=== PATIENT | female | born 1935 | race Caucasian/White ===

== ENCOUNTER 2017-04-18 19:09 | Inpatient (IN) ==
[2017-04-18] MEDS ORDERED: ACETAMINOPHEN 500 MG TABLET PO STA (19:44)
[2017-04-18] MEDS ORDERED: CLINDAMYCIN INJ 600 MG in PREMIX 1 EACH IV STA (19:44)
[2017-04-18] MEDS ORDERED: SODIUM CHLORIDE 0.9% 1,000 ML IV STA (19:44)
[2017-04-18] MEDS ORDERED: VANCOMYCIN INJ 1,000 MG in SODIUM CHLORIDE 0.9% 250 ML IV SCH (20:00)
--- NOTE | 2017-04-18 20:01 | Emergency Department Note ---
ILinda Emily, am scribing for, and in the presence of, Ahsan Alcantara MD 19: 57. IQuinton Charles R, MD, personally performed the services described in this documentation, ascribed by Elissa Mckeon in my presence, and it is both accurate and complete . Arrival - Arrival Chief Complaint: Fever Stated Complaint: altered mental status ED Nursing Triage Note: Pt was [facility] when [facility] staff noticed a change of mental status. Pt at triage unable to tell date and time. Pt is oriented to self. Pt has cellulitis to bilateral lower extremities. She is supposed to be taking vancomycin at [facility] for cellulitis, but pt has refused it. Denies CP, no SOB. Mode of Arrival: Stretcher Limitations: No Limitations Source: Patient Time Seen by Provider: 04/18/17 19:37 - History of Present Illness HPI Narrative: Pt is a 81 y/o female who came to ED from [facility] for further evaluation of cellulitis in BLE that have worsened. Pt was at [facility] when [facility] staff noticed pt's AMS. Pt is not oriented to date and time, but only to self. She refused vancomycin at [facility] for her cellulitis, but denies chest pain and SOB. Pt has fever of 100.4 in ED. She notes her legs are painful to the touch. She reports it has been hard to think and get her thoughts out, but not sure why she is in the ED. Onset (ago): hour(s) Consistency: constant Severity: moderate Severity scale (1-10): 5 Quality: other Allergies/Adverse Reactions: Allergies Allergy/AdvReac Type Severity Reaction Status Date / Time adhesive Allergy ANAPHYLAXIS Verified 04/18/17 19:21 aspirin Allergy ANAPHYLAXIS Verified 04/18/17 19:21 bacitracin Allergy ANAPHYLAXIS Verified 04/18/17 19:21 [From Neosporin ([id number])] Cephalosporins Allergy ANAPHYLAXIS Verified 04/18/17 19:21 codeine Allergy ANAPHYLAXIS Verified 04/18/17 19:21 iodine Allergy ANAPHYLAXIS Verified 04/18/17 19:21 Neomycin Allergy ANAPHYLAXIS Verified 04/18/17 19:21 [From Neosporin ([id number])] Penicillins Allergy ANAPHYLAXIS Verified 04/18/17 19:21 polymyxin B Allergy ANAPHYLAXIS Verified 04/18/17 19:21 [From Neosporin ([id number])] Sulfa (Sulfonamide Allergy ANAPHYLAXIS Verified 04/18/17 19:21 Antibiotics) Home Medications: Home Medications Medication Instructions Recorded Confirmed Type Atorvastatin [Lipitor] 20 mg PO DAILY 02/03/17 02/03/17 History Cetirizine Tab [ZyrTEC Tab] 10 mg PO DAILY 02/03/17 02/03/17 History Cilostazol 50 mg PO BID 02/03/17 02/03/17 History Ferrous Sulfate [Ferrous Sulfate 325 mg PO DAILY 02/03/17 02/03/17 History Cap] Gabapentin Cap/Tab [Neurontin 300 mg PO Q6H 02/03/17 02/03/17 History Cap/Tab] Multivit,Calc,Mins/Iron/Folic 1 tablet PO DAILY 02/03/17 02/03/17 History [Women's Daily Formula Caplet] Pantoprazole Tab [Protonix Tab] 40 mg PO BID 02/03/17 02/03/17 History Tramadol HCl [Ultram] 50 mg PO Q4H PRN 02/03/17 02/03/17 History Review of System - Review of System ROS unobtainable: due to mental status (pleasantly confused) Medical,Surgical,& Family Hx - Medical History Cardio: History of: PVD Endocrine: History of: Dyslipidemia Gastrointestinal: History of: Gastrointestinal Bleed, GI Problems ( angiodyplasia of stomach) Musculoskeletal: No history of: Amputation Reproductive: History of: Breast Cancer Other: History of: Miscellaneous Medical Problems (SIRS) - Surgical History Cardiac Surgeries: Patient Denies: Cardiac Catheterization Thoracic Surgeries: Patient denies;: Organ Transplant, Lobectomy Neurologic Surgeries: Patient denies: Neurologic Surgery HEENT Surgeries: Patient denies: Tonsilectomy & Adenoidectomy Abdominal Surgeries: Surgical HX of: Abdominal Surgery, Hernia Repair Reproductive Surgeries: Patient denies;: Genitourinary Surgery - Family History Family History: Reports;: Family Cancer (MOTHER-BREAST ,), Family Diabetes (AUNT ) - Social History Smoking Status: Smoker, status unknown Frequency of Alcohol Use: None Type of Drug Use: None Marital Status: Single Lives With:: [facility] Functional capacity: wheelchair bound Exam Vital Signs: Vital Signs Temperature 100.3 F H 04/18/17 19:10 Pulse Rate 115 H 04/18/17 19:10 Respiratory Rate 14 04/18/17 19:10 Blood Pressure 126/67 04/18/17 19:10 O2 Sat by Pulse Oximetry 98 04/18/17 19:10 - General General appearance: alert, in no apparent distress - Head Head exam: Present: atraumatic, normocephalic - Eye Eye exam: Present: PERRL, EOMI - ENT ENT exam: Present: mucous membranes moist. Absent: mucous membranes dry - Neck Neck exam: Present: full ROM - Chest Chest inspection: Present: symmetric chest wall rise - Respiratory Respiratory exam: Present: normal lung sounds bilaterally. Absent: respiratory distress - Cardiovascular Cardiovascular exam: Present: tachycardia, normal heart sounds - Extremities Exam Extremities exam: Present: tenderness (BLE cellulitis: LLE is more edemaous than RLE but both are erythematous and painful to the touch; from bilateral thighs to ankles is painful to touch) - Neurological Exam Neurological exam: Present: alert, CN II-XII intact. Absent: oriented X3 (x1) - Skin Skin exam: Present: warm, diaphoresis (clammy), erythema (body hue, diffusely). Absent: dry, intact Course - Consultations Consultation #1: Hospitalist will admit patient Time: 22:03 Results - Labs CBC & BMP: 04/18/17 19:35 04/18/17 19:35 Lab Results: I have reviewed the patients labs Labs: Microbiology 04/18/17 19:35 Throat Group A Streptococcus Rapid Screen - Final Negative for Grp A Strep Ag 04/18/17 19:35 Nasal Aspirate Influenza Types A,B Antigen (GRAHAM) - Final Negative for Influenza A Ag Negative for Influenza B Ag Laboratory Tests 04/18/17 04/18/17 19:35 19:35 WBC 11.4 RBC 4.16 Hgb 12.1 Hct 36.8 Plt Count 244 MPV 9.5 L Neut % (Auto) 93.5 H Lymph % (Auto) 1.3 L Neut # (Auto) 10.6 H Lymph # (Auto) 0.2 L Segmented Neutrophils 99 H Lymphocytes 1 L Platelet Estimate Adequate Poikilocytosis 1+ Ovalocytes 1+ ESR Westergren 52 H Sodium 136 Potassium 3.8 Chloride 103 Carbon Dioxide 27 BUN 25 H Creatinine 1.00 GFR Calculation 54 BUN/Creatinine Ratio 25.00 H Glucose 110 H AST 93 H ALT 32 Alkaline Phosphatase 72 C-Reactive Protein 1.17 H Albumin 3.3 L Globulin 3.7 H Albumin/Globulin Ratio 0.8 L Amylase 50 Lipase 147.0 - Diagnostic Findings Procedure: Chest x-ray: report reviewed by me (Atelectasis or scarring at the left base. Nodular densities projecting over the right lung base, which may reprresent pulmonary nodules, calcified granulomas, or dilated vascular structures. ), Ultrasound: report reviewed by me (Venous doppler: No evidence of DVT seen in either lower extremity.) Disposition Clinical Impression: Cellulitis, Sepsis, Debility, Altered mental status, Fever Case discussed with: patient Disposition: Still a Patient Condition: Stable Time of Disposition: 22:03
[2017-04-18 20:04] LABS: Basophils % 0.2 % (0.0-0.8); Eosinophils % 0.1 % (0.00-10.9); Hematocrit 36.8 VOL% (35.7-47.0); Hemoglobin 12.1 GM/DL (12.0-16.0); Immature Granulocytes % 0.5 %; Immature Granulocytes Absolute 0.06 #; Lymphocytes # 0.2 10*3/uL (1.4-4.0); Lymphocytes % 1.3 % (21.3-54.2); Mean Corpuscular HGB Conc 32.9 GM/DL (32-36); Mean Corpuscular Hemoglobin 29 PG (27-34); Mean Corpuscular Volume 88.5 FL (87-102); Mean Platelet Volume 9.5 FL (9.6-12.0); Monocytes # 0.5 10*3/uL (0.11-0.8); Monocytes % 4.4 % (1.7-12.7); Neutrophils # 10.6 10*3/uL (1.4-7.4); Neutrophils % 93.5 % (38.7-73.9); Platelet Count 244 T/CUMM (130-400); Red Blood Count 4.16 MC/CUMM (3.8-5.5); Red Cell Distribution Width 14.8 % (9.3-17.3); White Blood Count 11.4 T/CUMM (4-12)
--- NOTE | 2017-04-18 20:07 | XRay Report ---
Portable chest. Indication: Shortness of breath. Fever. Comparison: November 20, 2008. The heart is normal in size with left ventricular hypertrophy. There is atelectasis or scarring at the left lung base which was not present on the previous exam. The pulmonary vasculature is normal. There has been a right mastectomy and axillary dissection. The medial aspect of the right lung base, there are multiple small round densities measuring under a centimeter each. Degenerative changes are noted within the spinal column. Impression: Atelectasis or scarring at the left base. Nodular densities projecting over the right lung base, which may represent pulmonary nodules, calcified granulomas, or dilated vascular structures. PROCEDURE INTERPRETED AT [facility] DEPARTMENT OF RADIOLOGY Final Report Signed by: Dr. Sandra Boudreaux
[2017-04-18 20:15] LABS: Partial Thromboplastin Time 27.7 SECS (0-40)
[2017-04-18 20:23] LABS: Lymphocytes 1 % (20-55); Ovalocytes 1+; Platelet Estimate Adequate; Poikilocytosis 1+; Segmented Neutrophils 99 % (50-85); Total Cells Counted 100
[2017-04-18 20:24] LABS: Albumin 3.3 G/DL (3.4-5.0); Bilirubin,Total 0.4 MG/DL (0.2-1.0); Calcium 8.9 MG/DL (8.5-10.1); Potassium 3.8 MMOL/L (3.5-5.1)
--- NOTE | 2017-04-18 20:24 | Ultrasound Report ---
Bilateral lower extremity venous Doppler with mccarty scale, Spectral Doppler and color-flow analysis performed and interpreted. Indication: Edema Scanning over both common femoral veins, superficial femoral veins, greater saphenous veins and popliteal veins demonstrates normal compressibility, color flow, and augmentation. Impression: No evidence of DVT seen in either lower extremity. The Ultrasound images were captured and stored. PROCEDURE INTERPRETED AT [facility] DEPARTMENT OF RADIOLOGY Final Report Signed by: Dr. Sandra Boudreaux
[2017-04-18 21:07] LABS: Sedimentation Rate-Westergren 52 MM/HR (0-30)
[2017-04-18] MEDS ORDERED: VANCOMYCIN 1,000 MG VIAL ONE (21:08)
[2017-04-18] MEDS ORDERED: CLINDAMYCIN INJ 50 ML IV ONE (21:09)
[2017-04-18] MEDS ORDERED: ACETAMINOPHEN 500 MG TABLET ONE (21:09)
[2017-04-18 21:56] LABS: Apearance,Urine Slightly Hazy (Clear); Bilirubin,Urine Negative (Negative); Blood, Urine Large mg/dL (Negative); Glucose,Urine (UA) Negative (Negative); Ketones,Urine 5 mg/dL (Negative); Mucus,Urine Occasional /LPF (Occasional); Nitrite,Urine Negative (Negative); Protein,Urine 30 MG/DL; RBC,Urine 1 /HPF (0-4); Squamous Epithelial Cell,Urine Occasional /HPF (0-10); Urine Color Yellow (Yellow); Urine Specific Gravity 1.019 (1.001-1.035); Urine Urobilinogen < 2.0 EU/DL (0.2-1.0); WBC,Urine 2 /HPF (0-6)
[2017-04-18 22:19] LABS: Lactic Acid 2.5 MMOL/L (0.4-2.0)
[2017-04-18] MEDS ORDERED: ACETAMINOPHEN 325 MG TABLET PO PRN (23:31)
[2017-04-18] MEDS ORDERED: ONDANSETRON 4 MG/2 ML VIAL IV PRN (23:31)
[2017-04-18] MEDS ORDERED: traMADol 50 MG TABLET PO PRN (23:33)
--- NOTE | 2017-04-18 23:34 | Hospitalist History & Physical ---
History of Present Illness Chief complaint: fever, cellulitis History of present illness: Ms. Myers is a 81 year old female Home Medications Medication Instructions Recorded Confirmed Type Atorvastatin [Lipitor] 20 mg PO DAILY 02/03/17 02/03/17 History Cetirizine Tab [ZyrTEC Tab] 10 mg PO DAILY 02/03/17 02/03/17 History Cilostazol 50 mg PO BID 02/03/17 02/03/17 History Ferrous Sulfate [Ferrous Sulfate 325 mg PO DAILY 02/03/17 02/03/17 History Cap] Gabapentin Cap/Tab [Neurontin 300 mg PO Q6H 02/03/17 02/03/17 History Cap/Tab] Multivit,Calc,Mins/Iron/Folic 1 tablet PO DAILY 02/03/17 02/03/17 History [Women's Daily Formula Caplet] Pantoprazole Tab [Protonix Tab] 40 mg PO BID 02/03/17 02/03/17 History Tramadol HCl [Ultram] 50 mg PO Q4H PRN 02/03/17 02/03/17 History Allergies Allergy/AdvReac Type Severity Reaction Status Date / Time adhesive Allergy ANAPHYLAXIS Verified 04/18/17 19:21 aspirin Allergy ANAPHYLAXIS Verified 04/18/17 19:21 bacitracin Allergy ANAPHYLAXIS Verified 04/18/17 19:21 [From Neosporin ([id number])] Cephalosporins Allergy ANAPHYLAXIS Verified 04/18/17 19:21 codeine Allergy ANAPHYLAXIS Verified 04/18/17 19:21 iodine Allergy ANAPHYLAXIS Verified 04/18/17 19:21 Neomycin Allergy ANAPHYLAXIS Verified 04/18/17 19:21 [From Neosporin ([id number])] Penicillins Allergy ANAPHYLAXIS Verified 04/18/17 19:21 polymyxin B Allergy ANAPHYLAXIS Verified 04/18/17 19:21 [From Neosporin ([id number])] Sulfa (Sulfonamide Allergy ANAPHYLAXIS Verified 04/18/17 19:21 Antibiotics) Medical,Surgical,& Family Hx - Medical History Cardio: History of: PVD Endocrine: History of: Dyslipidemia Gastrointestinal: History of: Gastrointestinal Bleed, GI Problems ( angiodyplasia of stomach) Musculoskeletal: No history of: Amputation Reproductive: History of: Breast Cancer Other: History of: Miscellaneous Medical Problems (SIRS) - Surgical History Cardiac Surgeries: Patient Denies: Cardiac Catheterization Thoracic Surgeries: Patient denies;: Organ Transplant, Lobectomy Neurologic Surgeries: Patient denies: Neurologic Surgery HEENT Surgeries: Patient denies: Tonsilectomy & Adenoidectomy Abdominal Surgeries: Surgical HX of: Abdominal Surgery, Hernia Repair Reproductive Surgeries: Patient denies;: Genitourinary Surgery - Family History Family History: Reports;: Family Cancer (MOTHER-BREAST ,), Family Diabetes (AUNT ) - Social History Smoking Status: Smoker, status unknown Frequency of Alcohol Use: None Type of Drug Use: None Exam - Constitutional Vitals: Period Temp Pulse Resp BP Sys/Mares Pulse Ox Last 24 Hr 100.3 F-100.3 F 115-115 14-18 126-126/67-67 94-98 Results - Labs CBC & BMP: 04/18/17 19:35 04/18/17 19:35
--- NOTE | 2017-04-19 00:28 | Hospitalist History & Physical ---
Assessment and Plan - Time spent with patient Time spent with patient: Greater than 30 minutes (1) Sepsis Status: Acute Assessment and plan: Admit to hospitalist services. Consult Dr. Allen. Sepsis criteria: Temp 100.3, HR 115, Lactic acid 2.5. BP was initially stable in ED, but then went low during ED stay. However, she reports she always has low BP. Son verifies this statement. NS bolus given in ED. Blood and urine cultures obtained in ED; follow. Repeat Lactic acid ordered. Vancomyin and Clindamycin given in ED. Continue antibiotic therapy with Vancomycin 1 gram Q12 hours. Repeat CBC and CMP in am. Current Visit: Yes (2) Cellulitis Status: Acute Assessment and plan: As above for Sepsis. Current Visit: Yes (3) Altered mental status Status: Acute Assessment and plan: As above for Sepsis. Monitor. Current Visit: Yes (4) Fever Status: Acute Assessment and plan: As above for Sepsis. Tylenol 325 mg Q4 hours PRN for fever. Current Visit: Yes (5) DVT prophylaxis Status: Acute Assessment and plan: Lovenox 40 mg SQ daily. Current Visit: Yes History of Present Illness Chief complaint: Altered Mental Status, confusion History of present illness: Ms. Villafuerte is a 81 year old female with a past medical history significant for PVD, dyslipidemia, GI bleed, angiodysplasia of stomach and breast cancer who presented to the ED tonight from the care home with complaints of fever, altered mental status, and cellulitis of BLEs. The care home reports that the patient was prescribed Vancomycin for her cellulitis but she refused it. Ms. Villafuerte states this is because a doctor, whom she cannot recall the name, told her it would be bad for her legs. She reports seeing Dr. Allen for grafting on left foot and has an appointment with him tomorrow. In the ED, her work up was significant for Temp 100.3, HR 115 and Lactic acid 2.5. WBCs were normal. Venous dopplers were negative for DVT. Currently, she complaints of being more forgetful and states that her legs are painful. Hospitalist services were consulted, and the patient will be admitted for further evaluation and treatment. Home medications were reviewed and reconciled. This patient is a full code. Home Medications Medication Instructions Recorded Confirmed Type Atorvastatin [Lipitor] 20 mg PO DAILY 02/03/17 02/03/17 History Cetirizine Tab [ZyrTEC Tab] 10 mg PO DAILY 02/03/17 02/03/17 History Cilostazol 50 mg PO BID 02/03/17 02/03/17 History Ferrous Sulfate [Ferrous Sulfate 325 mg PO DAILY 02/03/17 02/03/17 History Cap] Gabapentin Cap/Tab [Neurontin 300 mg PO Q6H 02/03/17 02/03/17 History Cap/Tab] Multivit,Calc,Mins/Iron/Folic 1 tablet PO DAILY 02/03/17 02/03/17 History [Women's Daily Formula Caplet] Pantoprazole Tab [Protonix Tab] 40 mg PO BID 02/03/17 02/03/17 History Tramadol HCl [Ultram] 50 mg PO Q4H PRN 02/03/17 02/03/17 History Allergies Allergy/AdvReac Type Severity Reaction Status Date / Time adhesive Allergy ANAPHYLAXIS Verified 04/18/17 19:21 aspirin Allergy ANAPHYLAXIS Verified 04/18/17 19:21 bacitracin Allergy ANAPHYLAXIS Verified 04/18/17 19:21 [From Neosporin ([id number])] Cephalosporins Allergy ANAPHYLAXIS Verified 04/18/17 19:21 codeine Allergy ANAPHYLAXIS Verified 04/18/17 19:21 iodine Allergy ANAPHYLAXIS Verified 04/18/17 19:21 Neomycin Allergy ANAPHYLAXIS Verified 04/18/17 19:21 [From Neosporin ([id number])] Penicillins Allergy ANAPHYLAXIS Verified 04/18/17 19:21 polymyxin B Allergy ANAPHYLAXIS Verified 04/18/17 19:21 [From Neosporin ([id number])] Sulfa (Sulfonamide Allergy ANAPHYLAXIS Verified 04/18/17 19:21 Antibiotics) Medical,Surgical,& Family Hx - Medical History Cardio: History of: PVD Endocrine: History of: Dyslipidemia Gastrointestinal: History of: Gastrointestinal Bleed, GI Problems ( angiodyplasia of stomach) Reproductive: History of: Breast Cancer Other: History of: Miscellaneous Medical Problems (SIRS) - Surgical History Abdominal Surgeries: Surgical HX of: Abdominal Surgery, Hernia Repair - Family History Family History: Reports;: Family Cancer (MOTHER-BREAST ,), Family Diabetes (AUNT ) - Social History Smoking Status: Former smoker Have you smoked in the last 12 months: No Frequency of Alcohol Use: None Type of Drug Use: None Marital Status: Lives With:: [facility] Functional capacity: wheelchair bound 12 point system: reviewed and no additional remarkable complaints except as stated - Constitutional Constitutional: Absent: fever(s), lethargy, malaise, weakness - EENT Eyes: Absent: blurry vision, diplopia, loss of vision Ears: Absent: decreased hearing, ear discharge, ear pain Nose, mouth and throat: Absent: headache(s), nasal congestion, sore throat - Cardiovascular Cardiovascular: Present: edema. Absent: chest pain at rest, dyspnea, orthopnea , palpitations - Respiratory Respiratory: Absent: cough, dyspnea, wheezing - Gastrointestinal Gastrointestinal: Absent: abdominal pain, constipation, diarrhea, nausea, vomiting - Genitourinary Genitourinary: Absent: dysuria, urinary frequency - Musculoskeletal Musculoskeletal: Absent: arthralgias, joint swelling, muscle weakness, myalgias - Neurological Neurological: Present: confusion, memory loss. Absent: numbness, paresthesias, syncope - Psychiatric Psychiatric: Present: confusion. Absent: anxiety, depression - Endocrine Endocrine: Absent: fatigue, polydipsia, polyphagia, polyuria - Hematologic/Lymphatic Hematologic/Lymphatic: Absent: easy bleeding, easy bruising Exam - Constitutional Vitals: Period Temp Pulse Resp BP Sys/Mares Pulse Ox Last 24 Hr 100.3 F-100.3 F 115-115 14-18 126-126/67-67 94-98 Exam: Constitutional System: Awake and alert; unable to relate why she's at the hospital. [No] distress. [No] tremulousness. Head: Normocephalic, atraumatic. Ears, Nose and Throat System: No pain or tenderness. No epistaxis or discharge Eyes System: Pupils equal, round, and reactive. Extraocular muscles intact. Neck: Supple, without adenopathy, [No] jugular venous distention. No thyromegaly , neck mass, or prior surgery apparent. Respiratory System: Chest [clear] to auscultation. Cardiovascular System: Heart with [regular] rate and rhythm. [No] murmur. GI System: Abdomen [soft], [non]tender. [Normo]active bowel sounds present. Musculoskeletal System: BLE redness, warmth and swelling; left worse than right ; painful to touch. Neurological System: [No discernable] sensory deficit. [No] aphasia Psychiatric System: Mildly confused. Answers some questions appropriately; others she cannot recall the answer. Results - Labs CBC & BMP: 04/18/17 19:35 04/18/17 19:35 Lab Results: I have reviewed the past 24 hour labs - Diagnostic Findings Procedure: Chest x-ray: report reviewed by me Sepsis - Sepsis Classification of Sepsis: Sepsis Sepsis documentation within 6 hours of presentation: fluid change - Physical Exam Respiratory exam: clear to auscultation bilaterally Capillary Refill: Less Than 3 Seconds Peripheral pulses: Radial (L): 5+, Radial (R): 5+, Dorsalis Pedis (L) PM: 5+, Dorsalis Pedis (R) PM: 5+, Posterior Tibialis (L): 5+, Posterior Tibialis (R): 5 + Cardiovascular exam: tachycardia Skin exam: normal color
[2017-04-19 03:58] LABS: Basophils % 0.2 % (0.0-0.8); Eosinophils # 0.1 10*3/uL (0.0-0.87); Eosinophils % 0.8 % (0.00-10.9); Hematocrit 32.6 VOL% (35.7-47.0); Hemoglobin 10.6 GM/DL (12.0-16.0); Immature Granulocytes % 0.4 %; Immature Granulocytes Absolute 0.04 #; Lymphocytes # 0.3 10*3/uL (1.4-4.0); Lymphocytes % 2.6 % (21.3-54.2); Mean Corpuscular HGB Conc 32.5 GM/DL (32-36); Mean Corpuscular Hemoglobin 29 PG (27-34); Mean Corpuscular Volume 89.8 FL (87-102); Mean Platelet Volume 9.8 FL (9.6-12.0); Monocytes # 0.4 10*3/uL (0.11-0.8); Monocytes % 3.9 % (1.7-12.7); Neutrophils # 9.7 10*3/uL (1.4-7.4); Neutrophils % 92.1 % (38.7-73.9); Platelet Count 240 T/CUMM (130-400); Red Blood Count 3.63 MC/CUMM (3.8-5.5); White Blood Count 10.5 T/CUMM (4-12)
[2017-04-19 04:37] LABS: Albumin 3.1 G/DL (3.4-5.0); Bilirubin,Total 0.9 MG/DL (0.2-1.0); Calcium 8.5 MG/DL (8.5-10.1); Osmolality,Calculated 282.4 MOS/KG (273-304); Potassium 3.7 MMOL/L (3.5-5.1); Total Protein 6.4 G/DL (6.4-8.3)
[2017-04-19 05:14] LABS: Band Neutrophils 3 % (0-10); Eosinophils 2 % (0-10); Lymphocytes 3 % (20-55); Segmented Neutrophils 90 % (50-85); Total Cells Counted 100
[2017-04-19 05:15] LABS: Hypochromasia Slight; Microcytosis Slight; Ovalocytes Slight
[2017-04-19 05:16] LABS: Platelet Estimate Normal
--- NOTE | 2017-04-19 07:11 | Physician Query Form ---
CLICK EDIT DOCUMENT TO SELECT QUERY ANSWER --> OK --> SIGN Briseyda Kearns RN, CCDS Certified Clinical Applied Biology Professor W) [phone] (f) [phone] [email or web address] PROVIDERS: Make your selection(s) from the choices in EACH section by typing an "x" and enter comments in the comment section. Please use your independent medical judgment in providing your response. This request does not imply that any particular answer is desired or expected. CLINICAL INDICATORS: (Providers should not edit this section) The medical record indicates that the patient was admitted with sepsis, AMS, "due to mental status (pleasantly confused)", "Mildly confused", "Pt is not oriented to date and time, but only to self" AND the patient was treated with antibiotics. ACUITY: ( X) Acute ( ) Acute on Chronic ( ) Chronic ( ) Clinically unable to determine NATURE: (X ) Delirium due to general medical condition ( ) Dementia ( ) Encephalopathy (X ) Acute Encephalopathy due to infection ( ) Unconscious ( ) Transient level of awareness ( ) Comatose ( ) Locked-in State ( ) Persistent Vegetative State ( ) Other, please specify: ( ) Clinically unable to determine Please indicate the underlying cause of the altered mental status (CHECK ALL THAT APPLY): ( ) Baseline dementia ( ) Alzheimer's disease ( ) Parkinson's disease ( ) Lewy body dementia ( ) Acute stroke ( ) Late effect of stroke ( ) Reactive (from emotional stress, psychological trauma) ( ) Due to narcotics/other drugs ( ) Post procedural delirium ( ) Transient ischemic attack ( ) Generalized cerebral edema ( ) Normal pressure hydrocephalus ( ) Psychiatric illness ( ) Other, please specify: ( ) Clinically unable to determine Please indicate if there is an infection, sepsis, dehydration or specific organ failure that is causing the dementia. Be specific with clarifying the relationship between that process and the mental status change. COMMENTS: PLEASE ALSO DOCUMENT RESPONSE IN PROGRESS NOTES AND/OR DISCHARGE SUMMARY Use of terms such as suspected, likely, or probable (associated with a specific diagnosis that is being evaluated, monitored, or treated as if it exists) are acceptable and can be restated in the discharge summary if not ruled out. MTDD
[2017-04-19] MEDS: GABAPENTIN 300 MG CAPSULE PO SCH ×4 (07:27→23:21)
--- NOTE | 2017-04-19 10:05 | General Surgery Consult Note ---
Assessment and Plan (1) Cellulitis Status: Acute Assessment and plan: Cellulitis of bilateral lower extremities associated with chronic venous insufficiency of bilateral lower extremity with left apparently greater than right. Patient is currently on vancomycin without leukocytosis; not T-max 100.9. Monitor for response. There is no evidence of abscess or fluid in these locations. Left lower leg cellulitis is greater than the right. We will evaluate for possible osteosis and associated infection of the ulcer of the left foot. Wound care has been consulted for local therapy. Current Visit: Yes (2) Hallux valgus (acquired), left foot Status: Acute Assessment and plan: Patient has bilateral hallux valgus with orthotic shoes at the bedside. Associated wound to the left. See above. Current Visit: Yes (3) Ulcer of foot, chronic Status: Acute Assessment and plan: Chronic wound with mild cellulitis associated into tenderness which the patient reports is new. No caryl drainage or clear indication for debridement at this time. We will x-ray this foot and to assess for possible osteomyelitis; additional imaging may be warranted pending patient's clinical progress. Dr. Allen to follow. Current Visit: Yes History of Present Illness Chief complaint: cellulitis/ulcer LLE History of present illness: Ms. Myers is a 81 year old female with past medical history of peripheral vascular disease and bilateral hallux valgus who is admitted with bilateral cellulitis and concerns with the left lower extremity foot ulcer. The patient was previously on vancomycin for bilateral lower extremity cellulitis but recently stopped which she describes by a physician recommendation with an [facility] physician. She is a fair historian and she struggles with details and chronicity. Regardless, the cellulitis has returned and the patient was sent to this facility from a senior care for treatment. She is currently on vancomycin. The patient reports she has been on vancomycin for 4-5 days and noticed return of the cellulitis and pain. She reports the wound associated left first MTP is chronic although she is unable to tell me how long and unchanged. Regardless patient has had a low-grade temperature while inpatient without associated leukocytosis. Venous Doppler studies were negative. Home Medications Medication Instructions Recorded Confirmed Type Atorvastatin [Lipitor] 20 mg PO DAILY 02/03/17 02/03/17 History Cetirizine Tab [ZyrTEC Tab] 10 mg PO DAILY 02/03/17 02/03/17 History Cilostazol 50 mg PO BID 02/03/17 02/03/17 History Ferrous Sulfate [Ferrous Sulfate 325 mg PO DAILY 02/03/17 02/03/17 History Cap] Gabapentin Cap/Tab [Neurontin 300 mg PO Q6H 02/03/17 02/03/17 History Cap/Tab] Multivit,Calc,Mins/Iron/Folic 1 tablet PO DAILY 02/03/17 02/03/17 History [Women's Daily Formula Caplet] Pantoprazole Tab [Protonix Tab] 40 mg PO BID 02/03/17 02/03/17 History Tramadol HCl [Ultram] 50 mg PO Q4H PRN 02/03/17 02/03/17 History Allergies Allergy/AdvReac Type Severity Reaction Status Date / Time adhesive Allergy ANAPHYLAXIS Verified 04/18/17 19:21 aspirin Allergy ANAPHYLAXIS Verified 04/18/17 19:21 bacitracin Allergy ANAPHYLAXIS Verified 04/18/17 19:21 [From Neosporin ([id number])] Cephalosporins Allergy ANAPHYLAXIS Verified 04/18/17 19:21 codeine Allergy ANAPHYLAXIS Verified 04/18/17 19:21 iodine Allergy ANAPHYLAXIS Verified 04/18/17 19:21 Neomycin Allergy ANAPHYLAXIS Verified 04/18/17 19:21 [From Neosporin ([id number])] Penicillins Allergy ANAPHYLAXIS Verified 04/18/17 19:21 polymyxin B Allergy ANAPHYLAXIS Verified 04/18/17 19:21 [From Neosporin ([id number])] Sulfa (Sulfonamide Allergy ANAPHYLAXIS Verified 04/18/17 19:21 Antibiotics) Medical,Surgical,& Family Hx - Medical History Cardio: History of: PVD Endocrine: History of: Dyslipidemia Gastrointestinal: History of: Gastrointestinal Bleed, GI Problems ( angiodyplasia of stomach) Musculoskeletal: No history of: Amputation Reproductive: History of: Breast Cancer Other: History of: Miscellaneous Medical Problems (SIRS) - Surgical History Cardiac Surgeries: Patient Denies: Cardiac Catheterization Thoracic Surgeries: Patient denies;: Organ Transplant, Lobectomy Neurologic Surgeries: Patient denies: Neurologic Surgery HEENT Surgeries: Patient denies: Tonsilectomy & Adenoidectomy Abdominal Surgeries: Surgical HX of: Abdominal Surgery, Colonoscopy, EGD, Hernia Repair Reproductive Surgeries: Patient denies;: Genitourinary Surgery - Family History Family History: Reports;: Family Cancer (MOTHER-BREAST ,), Family Diabetes (AUNT ) - Social History Smoking Status: Former smoker Frequency of Alcohol Use: None Type of Drug Use: None ROS unobtainable: other (Unreliable) Exam - Constitutional Vitals: Period Temp Pulse Resp BP Sys/Mares Pulse Ox Last 24 Hr 98.6 F-100.9 F 90-115 14-20 92-135/50-70 93-98 General appearance: no acute distress - Head Head exam: Present: normocephalic - Eye Eye exam: Absent: scleral icterus - Neck Neck exam: Present: trachea midline - Respiratory Respiratory exam: Present: clear to auscultation bilaterally - Cardiovascular Cardiovascular exam: Present: RRR - GI/Abdominal GI/Abdominal exam: Present: normal bowel sounds, soft. Absent: tenderness - Extremities Exam Extremities exam: Present: other (Right lower extremity with mild cellulitic changes of the lower leg as well as chronic venous insufficiency changes; left lower extremity is more edematous and more erythematous throughout the lower leg with chronic venous insufficiency changes noted. Bilateral hallux valgus is noted with a wound over the first MTP joint of the left foot which appears chronic in nature approximately 2 cm in diameter without drainage but it is tender to palpation) - Neurological Exam Neurological exam: Present: alert, oriented X3 Speech: Present: normal - Skin Skin exam: Present: normal color Results - Labs CBC & BMP: 04/19/17 02:57 04/19/17 02:57
[2017-04-19] MEDS: CILOSTAZOL 50 MG TABLET PO SCH ×2 (11:00→20:38)
[2017-04-19] MEDS: ATORVASTATIN 20 MG TABLET PO SCH (11:00)
[2017-04-19] MEDS: FERROUS SULFATE 325 MG TABLET PO SCH (11:00)
[2017-04-19] MEDS: PANTOPRAZOLE 40 MG TABLET PO SCH (11:00)
[2017-04-19] MEDS: CETIRIZINE 10 MG TABLET PO SCH (11:01)
[2017-04-19] MEDS: ENOXAPARIN 40 MG/0.4 ML SYRINGE SUBCUT SCH (11:01)
--- NOTE | 2017-04-19 13:10 | Infectious Disease Consult ---
Assessment and Plan (1) Altered mental status Status: Acute Assessment and plan: Probably due to the fever. She seems back to baseline today. Current Visit: Yes (2) Fever Status: Acute Assessment and plan: Low-grade fever without obvious focus of infection. No symptoms of signs of pneumonia, UA negative for UTI, and clinically she does not have cellulitis. We need to make sure there is no bloodstream infection with entry point being chronic ulcer left foot. Recommendations: I agree with empiric vancomycin. Monitor fever curve and follow blood cultures which are pending. Thank you very much for the consult. Will follow. Current Visit: Yes (3) Ulcer of foot, chronic Status: Acute Assessment and plan: Chronic ulcer to left foot which is not draining. It does not appear actively infected but I suppose it is possible that there is underlying osteomyelitis. Imaging studies pending and patient being evaluated by Dr. Horton. Current Visit: Yes (4) Venous stasis Status: Acute Assessment and plan: Patient has chronic venous insufficiency with stasis dermatitis to both legs. Clinically there is no cellulitis of her legs, in fact they look better than last week when I saw her in the office. Antibiotic therapy for cellulitis not indicated at this time. Current Visit: No History of Present Illness Chief complaint: Fever History of present illness: Ms. Myers is a 81 year old female was signed the office just 1 week ago for suspected cellulitis. Dr. Horton [place] to me because her legs are felt to be ready. In speaking with the patient she has had chronic changes in the skin of both legs due to chronic venous insufficiency. She says the color of her legs fluctuate sometimes getting a little more red than other times however she does not express any pain and never has fever. When I saw her last there was no hyperemia or induration of her legs. There was chronic hyperpigmentation more distally, thickening of the skin and then a more pink appearance more proximally. I recommended that the clindamycin should be on be discontinued as I felt the risks of continuing this [including C. difficile] outweigh any benefit. The patient was sent to the hospital yesterday after she started having fever, apparently the T-max was 100.9. She was also confused with the fever. The patient tells me today that she has not had any cough shortness of breath pleuritic chest pain, no nausea vomiting or diarrhea and she did eat most of her lunch today, no irritative urinary symptoms. She has not had any new pain or other symptoms of her legs. Home Medications Medication Instructions Recorded Confirmed Type Atorvastatin [Lipitor] 20 mg PO DAILY 02/03/17 02/03/17 History Cetirizine Tab [ZyrTEC Tab] 10 mg PO DAILY 02/03/17 02/03/17 History Cilostazol 50 mg PO BID 02/03/17 02/03/17 History Ferrous Sulfate [Ferrous Sulfate 325 mg PO DAILY 02/03/17 02/03/17 History Cap] Gabapentin Cap/Tab [Neurontin 300 mg PO Q6H 02/03/17 02/03/17 History Cap/Tab] Multivit,Calc,Mins/Iron/Folic 1 tablet PO DAILY 02/03/17 02/03/17 History [Women's Daily Formula Caplet] Pantoprazole Tab [Protonix Tab] 40 mg PO BID 02/03/17 02/03/17 History Tramadol HCl [Ultram] 50 mg PO Q4H PRN 02/03/17 02/03/17 History Allergies Allergy/AdvReac Type Severity Reaction Status Date / Time adhesive Allergy ANAPHYLAXIS Verified 04/18/17 19:21 aspirin Allergy ANAPHYLAXIS Verified 04/18/17 19:21 bacitracin Allergy ANAPHYLAXIS Verified 04/18/17 19:21 [From Neosporin ([id number])] Cephalosporins Allergy ANAPHYLAXIS Verified 04/18/17 19:21 codeine Allergy ANAPHYLAXIS Verified 04/18/17 19:21 iodine Allergy ANAPHYLAXIS Verified 04/18/17 19:21 Neomycin Allergy ANAPHYLAXIS Verified 04/18/17 19:21 [From Neosporin ([id number])] Penicillins Allergy ANAPHYLAXIS Verified 04/18/17 19:21 polymyxin B Allergy ANAPHYLAXIS Verified 04/18/17 19:21 [From Neosporin ([id number])] Sulfa (Sulfonamide Allergy ANAPHYLAXIS Verified 04/18/17 19:21 Antibiotics) 12 point system: reviewed and no additional remarkable complaints except as stated (Per HPI) Medical,Surgical,& Family Hx - Medical History Cardio: History of: PVD Endocrine: History of: Dyslipidemia Gastrointestinal: History of: Gastrointestinal Bleed, GI Problems ( angiodyplasia of stomach) Musculoskeletal: No history of: Amputation Reproductive: History of: Breast Cancer Other: History of: Miscellaneous Medical Problems (SIRS) - Surgical History Cardiac Surgeries: Patient Denies: Cardiac Catheterization Thoracic Surgeries: Patient denies;: Organ Transplant, Lobectomy Neurologic Surgeries: Patient denies: Neurologic Surgery HEENT Surgeries: Patient denies: Tonsilectomy & Adenoidectomy Abdominal Surgeries: Surgical HX of: Abdominal Surgery, Colonoscopy, EGD, Hernia Repair Reproductive Surgeries: Patient denies;: Genitourinary Surgery - Family History Family History: Reports;: Family Cancer (MOTHER-BREAST ,), Family Diabetes (AUNT ) - Social History Smoking Status: Former smoker Frequency of Alcohol Use: None Type of Drug Use: None Infectious Disease Exam H&P - Constitutional Vitals: Vital Signs Temp Pulse Resp BP Pulse Ox 99.7 F H 89 20 119/65 96 04/19/17 11:00 04/19/17 11:00 04/19/17 11:00 04/19/17 11:00 04/19/17 11:00 Intake and Output 04/18/17 04/19/17 04/19/17 23:59 07:59 15:59 Output Total 400 / 400 Balance -400 / -400 Output: Urine 400 / 400 Other: Voiding Method Toilet Bedside Commode # Voids 1 # Bowel Movements 0 Weight 74.843 kg 73.754 kg Patient Weight 04/19/17 23:59 Weight 73.754 kg Exam: General: Patient comfortable, nontoxic appearing HEENT: Mucous membranes pink and moist, anicteric acyanotic, BILL, no oral exudates Neck: Supple, no thyroid gland enlargement Respiratory system: Breath sounds vesicular, no crepitations or wheezes Cardiovascular: Normal S1 and S2, no murmurs appreciated Abdomen: Normal bowel sounds, soft nontender throughout, no organomegaly or mass Genitourinary: No suprapubic pain or bladder distention Extremities: Chronic nonpitting edema of both legs with thickening of the skin and hyperpigmentation distally, pink appearance more proximally. However there is no induration, no hyperemia, no open wounds to the legs. There is an ulcer to the inferior medial aspect of the left metatarsal head but no caryl drainage from this. Skin: No rash Reports - Labs CBC & BMP: 04/19/17 02:57 04/19/17 02:57 Labs: Laboratory Results - last 24 hr 04/18/17 04/18/1717 19:35 19:35 19:35 WBC 11.4 RBC 4.16 Hgb 12.1 Hct 36.8 MCV 88.5 MCH 29 MCHC 32.9 RDW 14.8 Plt Count 244 MPV 9.5 L Neut % (Auto) 93.5 H Lymph % (Auto) 1.3 L Mathews % (Auto) 4.4 Eos % (Auto) 0.1 Baso % (Auto) 0.2 Neut # (Auto) 10.6 H Lymph # (Auto) 0.2 L Mathews # (Auto) 0.5 Eos # (Auto) 0.0 Baso # (Auto) 0.0 Total Counted 100 Immature Gran % 0.5 Nucleated RBC % 0.0 Immature Gran # 0.06 Segmented Neutrophils 99 H Band Neutrophils Lymphocytes 1 L Monocytes Eosinophils Nucleated RBCs # 0.00 Platelet Estimate Adequate Immature Plt Fraction 0.0 Hypochromasia Poikilocytosis 1+ Microcytosis Ovalocytes 1+ ESR Westergren 52 H INR 1.0 PT Patient/Control Mix 11.0 Circ Anticoag PTT 27.7 Sodium 136 Potassium 3.8 Chloride 103 Carbon Dioxide 27 Anion Gap 9.8 BUN 25 H Creatinine 1.00 GFR Calculation 54 BUN/Creatinine Ratio 25.00 H Glucose 110 H Calculated Osmolality 276.0 Lactic Acid 2.5 H Calcium 8.9 Total Bilirubin 0.40 AST 93 H ALT 32 Alkaline Phosphatase 72 Ammonia 68 H Lactate Dehydrogenase 215 C-Reactive Protein 1.17 H Total Protein 7.0 Albumin 3.3 L Globulin 3.7 H Albumin/Globulin Ratio 0.8 L Amylase 50 Lipase 147.0 Urine Color Urine Appearance Urine pH Ur Specific [place] Urine Protein Urine Glucose (UA) Urine Ketones Urine Blood Urine Nitrate Urine Bilirubin Urine Urobilinogen Urine Leukocytes Urine RBC Urine WBC Ur Squamous Epith Cells Urine Mucus Ur Culture Indicated? 04/18/17 04/19/17 04/19/17 20:52 02:57 02:57 WBC 10.5 RBC 3.63 L Hgb 10.6 L Hct 32.6 L MCV 89.8 MCH 29 MCHC 32.5 RDW 15.0 Plt Count 240 MPV 9.8 Neut % (Auto) 92.1 H Lymph % (Auto) 2.6 L Mathews % (Auto) 3.9 Eos % (Auto) 0.8 Baso % (Auto) 0.2 Neut # (Auto) 9.7 H Lymph # (Auto) 0.3 L Mathews # (Auto) 0.4 Eos # (Auto) 0.1 Baso # (Auto) 0.0 Total Counted 100 Immature Gran % 0.4 Nucleated RBC % 0.0 Immature Gran # 0.04 Segmented Neutrophils 90 H Band Neutrophils 3 Lymphocytes 3 L Monocytes 2 Eosinophils 2 Nucleated RBCs # 0.00 Platelet Estimate Normal Immature Plt Fraction 0.0 Hypochromasia Slight Poikilocytosis Microcytosis Slight Ovalocytes Slight ESR Westergren INR PT Patient/Control Mix Circ Anticoag PTT Sodium 140 Potassium 3.7 Chloride 103 Carbon Dioxide 30 Anion Gap 10.7 BUN 24 H Creatinine 1.00 GFR Calculation 54 BUN/Creatinine Ratio 24.00 H Glucose 102 Calculated Osmolality 282.4 Lactic Acid Calcium 8.5 Total Bilirubin 0.90 AST 132 H ALT 39 Alkaline Phosphatase 65 Ammonia Lactate Dehydrogenase C-Reactive Protein Total Protein 6.4 Albumin 3.1 L Globulin 3.3 Albumin/Globulin Ratio 0.9 L Amylase Lipase Urine Color Yellow Urine Appearance Slightly hazy Urine pH 5.0 Ur Specific [place] 1.019 Urine Protein 30 Urine Glucose (UA) Negative Urine Ketones 5 Urine Blood Large Urine Nitrate Negative Urine Bilirubin Negative Urine Urobilinogen < 2.0 H Urine Leukocytes Negative Urine RBC 1 Urine WBC 2 Ur Squamous Epith Cells Occasional Urine Mucus Occasional Ur Culture Indicated? Not indicated 04/19/17 02:57 WBC RBC Hgb Hct MCV MCH MCHC RDW Plt Count MPV Neut % (Auto) Lymph % (Auto) Mathews % (Auto) Eos % (Auto) Baso % (Auto) Neut # (Auto) Lymph # (Auto) Mathews # (Auto) Eos # (Auto) Baso # (Auto) Total Counted Immature Gran % Nucleated RBC % Immature Gran # Segmented Neutrophils Band Neutrophils Lymphocytes Monocytes Eosinophils Nucleated RBCs # Platelet Estimate Immature Plt Fraction Hypochromasia Poikilocytosis Microcytosis Ovalocytes ESR Westergren INR PT Patient/Control Mix Circ Anticoag PTT Sodium Potassium Chloride Carbon Dioxide Anion Gap BUN Creatinine GFR Calculation BUN/Creatinine Ratio Glucose Calculated Osmolality Lactic Acid 1.4 Calcium Total Bilirubin AST ALT Alkaline Phosphatase Ammonia Lactate Dehydrogenase C-Reactive Protein Total Protein Albumin Globulin Albumin/Globulin Ratio Amylase Lipase Urine Color Urine Appearance Urine pH Ur Specific [place] Urine Protein Urine Glucose (UA) Urine Ketones Urine Blood Urine Nitrate Urine Bilirubin Urine Urobilinogen Urine Leukocytes Urine RBC Urine WBC Ur Squamous Epith Cells Urine Mucus Ur Culture Indicated? - Reports Microbiology: Microbiology 04/18/17 19:35 Quick Strep Confirmation Culture - Final Throat No Group A Streptococcus isolated. Group A Streptococcus Rapid Screen - Final Negative for Grp A Strep Ag 04/18/17 19:35 Influenza Types A,B Antigen (GRAHAM) - Final Nasal Aspirate Negative for Influenza A Ag Negative for Influenza B Ag - Diagnostic Findings Procedure: Chest x-ray: image reviewed by me, report reviewed by me (No definite consolidation appreciated)
--- NOTE | 2017-04-19 17:06 | XRay Report ---
Left foot, 3 views. Indication: Osteomyelitis. Infection. No prior studies. There is diffuse edema of the lower leg and foot. There is an ulceration along the plantar surface of the forefoot, beneath the first metatarsophalangeal joint. There is an air in the soft tissues consistent with gangrenous cellulitis. The ulcer is located at the head of the first metatarsal. The cortex adjacent to the ulcer is intact. There is a chronic subluxation and associated degenerative change at the first metatarsophalangeal joint. 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 There is subluxation of the third and fourth metatarsophalangeal joints. 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 No evidence of acute fracture. Impression: Gangrenous cellulitis at an ulcer along the plantar aspect of the forefoot, beneath the first metatarsophalangeal joint. The cortex is intact, without plain film findings of active osteomyelitis. PROCEDURE INTERPRETED AT [facility] DEPARTMENT OF RADIOLOGY Final Report Signed by: Dr. Sandra Bodureaux
[2017-04-19] MEDS: VANCOMYCIN INJ 1,250 MG in SODIUM CHLORIDE 0.9% 250 ML IV SCH (20:38)
[2017-04-20] MEDS: GABAPENTIN 300 MG CAPSULE PO SCH ×4 (06:46→23:14)
[2017-04-20 06:53] LABS: Calcium 8.4 MG/DL (8.5-10.1); Osmolality,Calculated 283.3 MOS/KG (273-304)
--- NOTE | 2017-04-20 07:45 | EKG Report ---
Stationary ECG Study [facility] ER Test Date: 04/18/2017 7:33:12 PM Pat Name: ROXANA LOTT Department: Room: 333 Gender: F [employer]: : [id number] Requested by: Ahsan Conrad Order Number: [id number] Reading MD: AMNA OCHOA Intervals [place] Rate: 113 P: 270 WV: 93 QRS: 77 QRSD: 99 T: 66 QT: 324 QTc: 391 Interpretive Statements LOW ATRIAL TACHYCARDIA OTHERWISE NORMAL TRACING Electronically Signed On 04-21-17 21:12:39 CDT by AMNA OCHOA [email or web address]
[2017-04-20] MEDS: ATORVASTATIN 20 MG TABLET PO SCH (09:12)
[2017-04-20] MEDS: CILOSTAZOL 50 MG TABLET PO SCH ×2 (09:12→20:46)
[2017-04-20] MEDS: CETIRIZINE 10 MG TABLET PO SCH (09:12)
[2017-04-20] MEDS: ENOXAPARIN 40 MG/0.4 ML SYRINGE SUBCUT SCH (09:12)
[2017-04-20] MEDS: FERROUS SULFATE 325 MG TABLET PO SCH (09:12)
[2017-04-20] MEDS: PANTOPRAZOLE 40 MG TABLET PO SCH (09:12)
--- NOTE | 2017-04-20 15:21 | Hospitalist Progress Note ---
Assessment and Plan (1) Cellulitis Status: Acute Assessment and plan: Cellulitis of bilateral lower extremities associated with chronic venous insufficiency of bilateral lower extremity with left apparently greater than right. Blood cultures- negative.Doppler is negative for DVT. Plan Continue with IV vancomycin Current Visit: Yes (2) Hallux valgus (acquired), left foot Status: Acute Assessment and plan: Patient has bilateral hallux valgus with orthotic shoes at the bedside. Wound care has been consulted for local therapy. Current Visit: Yes (3) Ulcer of foot, chronic Status: Acute Assessment and plan: Xray showed no plain film findings of active osteomyelitis. Current Visit: Yes Hospitalist: Subjective Interval history: patient feels much better. She has a bed space at [place]. Exam - Constitutional Vitals: Period Temp Pulse Resp BP Sys/Mares Pulse Ox Last 24 Hr 97.4 F-100.1 F 69-82 18-20 96-115/54-64 94-96 General appearance: no acute distress - Head Head exam: Present: normal inspection - Respiratory Respiratory exam: Present: clear to auscultation bilaterally - Cardiovascular Cardiovascular exam: Present: regular rate and rhythm - GI/Abdominal GI/Abdominal exam: Present: normal bowel sounds - Extremities Exam Extremities exam: Present: other (bilateral leg cellulitis) Results - Labs CBC & BMP: 04/19/17 02:57 04/20/17 05:26 Lab Results: I have reviewed the past 24 hour labs Quality Measures - VTE Contraindication to Mechanical VTE Prophylaxis: Local Inflammation
--- NOTE | 2017-04-20 15:30 | Infectious Disease Progress ---
Assessment and Plan (1) Altered mental status Status: Acute Assessment and plan: Probably due to the fever. She seems back to baseline. Current Visit: Yes (2) Fever Status: Acute Assessment and plan: Low-grade fever without obvious focus of infection. X-ray of left foot showed no evidence of ulcer myelitis. Patient generally seems to be doing better today. Recommendations: Continue empiric vancomycin. Once blood cultures remain negative tomorrow I would stop antibiotic therapy. Current Visit: Yes (3) Ulcer of foot, chronic Status: Acute Assessment and plan: Chronic ulcer to left foot which is not draining. No radiologic evidence of osteoarthritis. Patient to continue with local wound care. Current Visit: Yes (4) Venous stasis Status: Acute Assessment and plan: Patient has chronic venous insufficiency with stasis dermatitis to both legs. Clinically there is no cellulitis of her legs, in fact they look better than last week when I saw her in the office. Antibiotic therapy for cellulitis not indicated at this time. Current Visit: No Infectious Disease - PN: Subj Interval history: Patient feeling better today but just tired. T-max last night was 100.1. Infectious Disease Exam (PN) - Constitutional Vitals: Temp Pulse Resp BP Pulse Ox 98.5 F 81 18 96/54 94 L 04/20/17 13:11 04/20/17 13:11 04/20/17 14:34 04/20/17 13:11 04/20/17 13:11 General appearance: no acute distress Exam: General appearance: no acute distress - Eye Eye exam: Present: EOMI. no icterus Pupils: Present: BILL - ENT ENT exam: no oral exudates - Respiratory Respiratory exam: vesicular BS, no crepitations or wheezes - Cardiovascular Cardiovascular exam: regular rate and rhythm, no murmurs - GI/Abdominal GI/Abdominal exam: normal bowel sounds, soft, non-tender, no organomegaly or mass - Extremities Exam Extremities exam: Mild bilateral leg edema, no significant erythema of legs, bandaged wound to left foot - Skin Skin exam: no rash Results - Labs CBC & BMP: 04/19/17 02:57 04/20/17 05:26 Lab Results: I have reviewed the past 24 hour labs (Blood cultures negative today) Quality Measures - VTE Contraindication to Mechanical VTE Prophylaxis: Local Inflammation
[2017-04-20] MEDS: VANCOMYCIN INJ 1,250 MG in SODIUM CHLORIDE 0.9% 250 ML IV SCH (20:46)
[2017-04-21] MEDS: GABAPENTIN 300 MG CAPSULE PO SCH ×2 (05:29→14:03)
[2017-04-21 07:21] LABS: Calcium 8.7 MG/DL (8.5-10.1); Osmolality,Calculated 282.3 MOS/KG (273-304); Potassium 4.1 MMOL/L (3.5-5.1)
[2017-04-21] MEDS: ENOXAPARIN 40 MG/0.4 ML SYRINGE SUBCUT SCH (08:40)
[2017-04-21] MEDS: CILOSTAZOL 50 MG TABLET PO SCH (08:41)
[2017-04-21] MEDS: CETIRIZINE 10 MG TABLET PO SCH (08:41)
[2017-04-21] MEDS: ATORVASTATIN 20 MG TABLET PO SCH (08:41)
[2017-04-21] MEDS: FERROUS SULFATE 325 MG TABLET PO SCH (08:41)
[2017-04-21] MEDS: PANTOPRAZOLE 40 MG TABLET PO SCH (08:41)
--- NOTE | 2017-04-21 08:56 | Infectious Disease Progress ---
Assessment and Plan (1) Altered mental status Status: Acute Assessment and plan: Probably due to the fever. She seems back to baseline. Current Visit: Yes (2) Fever Status: Acute Assessment and plan: Low-grade fever without obvious focus of infection. Because nonspecific. Patient better. Recommendations: Discontinue antibiotics. I am okay with patient going home today. Current Visit: Yes (3) Ulcer of foot, chronic Status: Acute Assessment and plan: Chronic ulcer to left foot which is not draining. No radiologic evidence of osteoarthritis. Patient to continue with local wound care. Current Visit: Yes (4) Venous stasis Status: Acute Assessment and plan: Patient has chronic venous insufficiency with stasis dermatitis to both legs. Clinically there is no cellulitis of her legs, in fact they look better than last week when I saw her in the office. Antibiotic therapy for cellulitis not indicated at this time. Current Visit: No Infectious Disease - PN: Subj Interval history: Patient feels well today. She has not had fever for 48 hours. Has no discomfort in her legs. No other problems. Infectious Disease Exam (PN) - Constitutional Vitals: Temp Pulse Resp BP Pulse Ox 98.6 F 77 14 106/61 97 04/21/17 06:56 04/21/17 06:56 04/21/17 07:25 04/21/17 06:56 04/21/17 06:56 General appearance: no acute distress Exam: General appearance: no acute distress - Eye Eye exam: Present: EOMI. no icterus Pupils: Present: BILL - ENT ENT exam: no oral exudates - Extremities Exam Extremities exam: Mild bilateral leg edema, no significant erythema of legs - Skin Skin exam: no rash Results - Labs CBC & BMP: 04/19/17 02:57 04/21/17 06:26 Lab Results: I have reviewed the past 24 hour labs (Blood cultures negative today) Quality Measures - VTE Contraindication to Mechanical VTE Prophylaxis: Local Inflammation
--- NOTE | 2017-04-21 09:39 | Discharge Summary ---
<Jeanie Zarco - Last Filed: 04/21/17 09:34> Hospital Course - Hospital Course Hospital Course: 81-year-old white female with history of PVD, dyslipidemia, GI bleed, and breast cancer admitted by the hospitalist on 04/18/2017 with sepsis and metabolic encephalopathy due to bilateral lower extremity cellulitis. Patient was started on antibiotics she improved fairly quickly. Dr. Allen had been following her for left great toe ulcer and he feels that this is not the source of her fever etc. Dr. Palm as well had followed the patient and saw her during this hospital stay. She was on empiric vancomycin but no source of fever was ever found. The cellulitis was actually much improved from the previous week when seen in clinic by both physicians. Patient does have chronic venous insufficiency with stasis dermatitis to both legs. Her altered mental status and fever have all improved. She is being transferred today to swing bed for further rehab. No follow-up is needed with Dr. Pb Alberts. Will set up follow-up appointment with Dr. Allen for 2 weeks for her left toe ulcer. Complete discharge instructions were given to the patient. Care coordination, chart review, and completed discharge paperwork took approximately 40 minutes. - Time spent with patient Time with patient DS: Greater than 30 minutes Diagnosis - Discharge Diagnosis (1) Venous stasis Status: Chronic (2) Cellulitis Status: Resolved (3) Sepsis Status: Resolved (4) Altered mental status Status: Resolved (5) Fever Status: Resolved (6) Ulcer of foot, chronic Status: Chronic Specialty Discharge - Follow Up or Referrals Follow up with: Bharti Palm MD [Physician] - (prn ) Evens Allen MD [Physician] - 2 Weeks Discharge Plan - Discharge Data Disposition: Swing Bed, [facility] Based, [facility] Condition at Discharge: Stable Discharge Diet: advance to your usual diet Activity: as per physical therapy Hygiene: may shower Contact your physician if you experience:: fever over 101 Wound / Dressing Care Instructions: left medial plantar: wash with hibiclens. rinse well with saline. pat dry. apply lotion to bilateral lower extremity. hydrogel to wound bed. RLE: wash with hibiclens. rinse well with saline. pat dry. apply lotion liberally. knee high cotton sock - Discharge Medications Continue Cetirizine Tab [ZyrTEC Tab] 10 mg PO DAILY Tramadol HCl [Ultram] 50 mg PO Q4H PRN PRN Reason: Pain Pantoprazole Tab [Protonix Tab] 40 mg PO BID Ferrous Sulfate [Ferrous Sulfate Cap] 325 mg PO DAILY Gabapentin Cap/Tab [Neurontin Cap/Tab] 300 mg PO Q6H Atorvastatin [Lipitor] 20 mg PO DAILY Multivit,Calc,Mins/Iron/Folic [Women's Daily Formula Caplet] 1 tablet PO DAILY Cilostazol 50 mg PO BID - Follow Up or Referral Follow Up: Evens Allen MD [Physician] - 2 Weeks Bharti Palm MD [Physician] - (prn ) - Forms/Instructions Exam - Constitutional Vitals: Period Temp Pulse Resp BP Sys/Mares Pulse Ox Last 24 Hr 97.0 F-98.9 F 77-84 14-20 96-115/54-70 94-97 Exam: 81-year-old white female, no acute distress, alert and oriented Chest clear CV regular rate and rhythm Abdomen obese, nontender Extremities with bilateral foot wraps clean and dry, using postop shoes Discharge Results Procedures and tests throughout hospitalization: Pending Orders 04/18/17 20:35 Blood Culture Stat 04/18/17 21:05 Urinalysis Stat Labs on day of discharge: Labs from last 24 hours 04/21/17 06:26 Sodium 141 Potassium 4.1 Chloride 107 Carbon Dioxide 29 Anion Gap 9.1 BUN 19 H Creatinine 0.90 GFR Calculation 61 BUN/Creatinine Ratio 21.00 H Glucose 96 Calculated Osmolality 282.3 Calcium 8.7 Preliminary micro results at discharge 04/18/17 20:35 Blood Culture - Preliminary Blood No growth at 1 day 04/18/17 20:35 Blood Culture - Preliminary Blood No growth at 1 day DS: Provider Date of admission: 04/18/17 23:31 Primary care physician: . No PCP Attending physician on admission: Joey Matt MD Consults: 04/18/17 23:31 Consult to Physician [CONS] Routine Comment: cellulitis, ulcers LLE Consulting Provider: Evens Allen Consulting Provider Notified: Yes When should Consulting Provider be notified: Now Person Notified: Blank slaughter Date Notified: 04/19/17 Time Notified: 09:05 04/19/17 01:10 Consult to Pharmacy [CONS] Routine Reason for Pharmacy Consult: Dose/Manage Vancomycin 04/19/17 11:08 Consult to Physician [CONS] Routine Comment: pt known to you Consulting Provider: Bharti Paml Consulting Provider Notified: Yes When should Consulting Provider be notified: Now Person Notified: dhruv slaughter Date Notified: 04/20/17 Time Notified: 08:53 Discharging clinician: BANDAR Ngo Expected date of discharge: 04/21/17 <Mary Benitez - Last Filed: 04/21/17 10:05> Hospital Course - Time spent with patient Time with patient DS: Greater than 30 minutes (Time spent greater than 35mins) Diagnosis - Discharge Diagnosis (1) Cellulitis Status: Resolved (2) Hallux valgus (acquired), left foot Status: Acute (3) Ulcer of foot, chronic Status: Chronic (4) Venous stasis Status: Chronic (5) Altered mental status Status: Resolved (6) Fever Status: Resolved Exam - Constitutional General appearance: no acute distress - Head Head exam: Present: normal inspection - Respiratory Respiratory exam: Present: clear to auscultation bilaterally - Cardiovascular Cardiovascular exam: Present: regular rate and rhythm - GI/Abdominal GI/Abdominal exam: Present: normal bowel sounds
--- NOTE | 2017-04-21 10:21 | Event Note ---
Patient seen and examined. Afebrile vital signs stable. Ulcer looks good. She is being discharged today. We have her set up for follow-up in my office next week. My office will coordinate with Wyatt.
[2017-04-21 11:06] VITALS: BP 114/85
[2017-04-21] MEDS ORDERED: DESITIN 4OZ/NYSTATIN 15 GRAM MIXTURE PASTE TOP SCH (11:30)
== END 2017-04-21 13:10 | disposition swing bed (61) | DRG 871 ==
LOC: EDUNIT# → EDBD → N.ED 19:09 → SUATTDRO 23:31 → N.EDINP 23:31 → N.3E 04-19 00:20
PROVIDERS: ADMIT Family Medicine; ATTEND Internal Medicine

== ENCOUNTER 2020-10-01 12:38 | Observation (INO) ==
[2020-10-01] MEDS ORDERED: SODIUM CHLORIDE 0.9% 1,000 ML IV STA (13:11)
[2020-10-01 13:58] LABS: Basophils % 0.4 % (0.0-0.8); Eosinophils # 0.2 10*3/uL (0.0-0.87); Hematocrit 33.5 VOL% (35.7-47.0); Hemoglobin 10.1 GM/DL (12.0-16.0); Immature Granulocytes % 0.4 %; Immature Granulocytes Absolute 0.03 #; Lymphocytes # 0.8 10*3/uL (1.4-4.0); Lymphocytes % 9.6 % (21.3-54.2); Mean Corpuscular HGB Conc 30.1 GM/DL (32-36); Mean Platelet Volume 10.4 FL (9.6-12.0); Monocytes % 11.3 % (1.7-12.7); Neutrophils % 76.3 % (38.7-73.9); Platelet Count 212 T/CUMM (130-400); Red Blood Count 3.49 MC/CUMM (3.8-5.5); Red Cell Distribution Width 14.7 % (9.3-17.3); White Blood Count 7.8 T/CUMM (4-12)
[2020-10-01 14:24] LABS: Albumin 2.8 G/DL (3.4-5.0); Bilirubin,Total 0.5 MG/DL (0.2-1.0); Calcium 8.4 MG/DL (8.5-10.1); Osmolality,Calculated 267.1 MOS/KG (273-304); Potassium 3.3 MMOL/L (3.5-5.1); Total Protein 5.9 G/DL (5.0-7.5)
[2020-10-01 14:32] LABS: Bilirubin,Urine Negative (Negative); Blood, Urine Negative (Negative); Glucose,Urine (UA) Negative (Negative); Ketones,Urine 20 mg/dL (Negative); Mucus,Urine Occasional /LPF (Occasional); Nitrite,Urine Negative (Negative); Protein,Urine Negative; RBC,Urine <1 /HPF (0-4); Urine Appearance CLEAR (Clear); Urine Color Yellow (Yellow); Urine Specific Gravity 1.012 (1.001-1.035); Urine Urobilinogen < 2.0 EU/DL (0.2-1.0); WBC,Urine <1 /HPF (0-6)
[2020-10-01 14:48] LABS: Barbiturates Screen,Urine Negative (Negative); Benzodiazepines Screen,Urine Negative (Negative); Cannabinoid Screen,Urine Negative (Negative); Opiate Screen,Urine Negative (Negative); Phencyclidine Screen,Urine Negative (Negative)
[2020-10-01 15:00] LABS: INR 1.1; PT Patient Result 11.5 SECS (9.8-11.9); Partial Thromboplastin Time 30.6 SECS (23.9-33.8)
[2020-10-01] MEDS ORDERED: GLUCAGON 1 MG VIAL IM PRN (15:12)
[2020-10-01] MEDS ORDERED: DEXTROSE 50% 25 GM/50 ML VIAL IV PRN (15:12)
[2020-10-01] MEDS ORDERED: ONDANSETRON 4 MG/2 ML VIAL IV PRN (15:12)
[2020-10-01] MEDS: OXYBUTYNIN XL 10 MG TABLET PO SCH (21:01)
[2020-10-01] MEDS: SERTRALINE 50 MG TABLET PO SCH (21:01)
[2020-10-01] MEDS: ENOXAPARIN 40 MG/0.4 ML SYRINGE SUBCUT SCH (21:01)
[2020-10-01] MEDS: ATORVASTATIN 20 MG TABLET PO SCH (21:01)
[2020-10-02 05:36] LABS: Basophils % 0.4 % (0.0-0.8); Eosinophils # 0.2 10*3/uL (0.0-0.87); Eosinophils % 2.4 % (0.00-10.9); Hematocrit 33.6 VOL% (35.7-47.0); Hemoglobin 9.9 GM/DL (12.0-16.0); Immature Granulocytes % 0.4 %; Immature Granulocytes Absolute 0.03 #; Lymphocytes # 0.8 10*3/uL (1.4-4.0); Lymphocytes % 12.4 % (21.3-54.2); Mean Corpuscular HGB Conc 29.5 GM/DL (32-36); Mean Corpuscular Volume 96.3 FL (87-102); Mean Platelet Volume 10.2 FL (9.6-12.0); Monocytes % 10.6 % (1.7-12.7); Neutrophils % 73.8 % (38.7-73.9); Platelet Count 242 T/CUMM (130-400); Red Blood Count 3.49 MC/CUMM (3.8-5.5); Red Cell Distribution Width 14.6 % (9.3-17.3); White Blood Count 6.7 T/CUMM (4-12)
[2020-10-02 06:09] LABS: Albumin 2.7 G/DL (3.4-5.0); Bilirubin,Total 0.6 MG/DL (0.2-1.0); Calcium 8.3 MG/DL (8.5-10.1); Osmolality,Calculated 275.4 MOS/KG (273-304); Potassium 3.3 MMOL/L (3.5-5.1); Thyroid Stimulating Hormone 2.55 uIU/ml (0.358-3.74); Total Protein 6.1 G/DL (5.0-7.5)
[2020-10-02] MEDS: ACETAMINOPHEN 325 MG TABLET PO PRN ×2 (06:21→17:52)
[2020-10-02] MEDS: PANTOPRAZOLE 40 MG TABLET PO SCH (08:46)
[2020-10-02] MEDS: MEMANTINE 5 MG TABLET PO SCH (08:46)
[2020-10-02] MEDS: TAMOXIFEN 10 MG TABLET PO SCH (08:47)
[2020-10-02] MEDS: CETIRIZINE 10 MG TABLET PO SCH (08:47)
[2020-10-02] MEDS: FERROUS SULFATE 325 MG TABLET PO SCH (08:47)
[2020-10-02] MEDS: FUROSEMIDE 20 MG TABLET PO SCH (08:47)
[2020-10-02] MEDS ORDERED: TUBERCULIN SKIN TEST 0.1 ML SYRINGE INTRADERM ONE (10:19)
[2020-10-02] MEDS: MIRABEGRON 25 MG PO SCH (18:06)
[2020-10-02] MEDS: SERTRALINE 50 MG TABLET PO SCH (21:31)
[2020-10-02] MEDS: ATORVASTATIN 20 MG TABLET PO SCH (21:31)
[2020-10-02] MEDS: OXYBUTYNIN XL 10 MG TABLET PO SCH (21:31)
[2020-10-02] MEDS: ENOXAPARIN 40 MG/0.4 ML SYRINGE SUBCUT SCH (21:32)
[2020-10-03] MEDS: traMADol 50 MG TABLET PO PRN (01:14)
[2020-10-03] MEDS: FERROUS SULFATE 325 MG TABLET PO SCH (11:14)
[2020-10-03] MEDS: MEMANTINE 5 MG TABLET PO SCH (11:14)
[2020-10-03] MEDS: CETIRIZINE 10 MG TABLET PO SCH (11:15)
[2020-10-03] MEDS: FUROSEMIDE 20 MG TABLET PO SCH (11:15)
[2020-10-03] MEDS: TAMOXIFEN 10 MG TABLET PO SCH (11:15)
[2020-10-03] MEDS: PANTOPRAZOLE 40 MG TABLET PO SCH (11:15)
[2020-10-03 14:38] LABS: Bilirubin,Urine Negative (Negative); Blood, Urine Moderate mg/dL (Negative); Glucose,Urine (UA) Negative (Negative); Ketones,Urine Negative (Negative); Nitrite,Urine Positive (Negative); Protein,Urine 100 MG/DL; RBC,Urine 248 /HPF (0-4); Urine Appearance CLOUDY (Clear); Urine Color Yellow (Yellow); Urine Specific Gravity 1.015 (1.001-1.035); Urine Urobilinogen < 2.0 EU/DL (0.2-1.0); WBC,Urine 300 /HPF (0-6)
[2020-10-03] MEDS: LEVOFLOXACIN INJ 250 MG in PREMIX 1 EACH IV SCH (17:07)
[2020-10-03] MEDS: MIRABEGRON 25 MG PO SCH (17:07)
[2020-10-03] MEDS: POTASSIUM CHLORIDE 20 MEQ TABLET PO PRN ×3 (18:30→22:15)
[2020-10-03] MEDS: ATORVASTATIN 20 MG TABLET PO SCH (20:22)
[2020-10-03] MEDS: OXYBUTYNIN XL 10 MG TABLET PO SCH (20:22)
[2020-10-03] MEDS: SERTRALINE 50 MG TABLET PO SCH (20:22)
[2020-10-03] MEDS: ENOXAPARIN 40 MG/0.4 ML SYRINGE SUBCUT SCH (20:23)
[2020-10-04] MEDS: traMADol 50 MG TABLET PO PRN ×2 (03:23→15:08)
[2020-10-04 06:14] LABS: Basophils % 0.5 % (0.0-0.8); Eosinophils # 0.1 10*3/uL (0.0-0.87); Eosinophils % 1.4 % (0.00-10.9); Hematocrit 31.6 VOL% (35.7-47.0); Hemoglobin 9.8 GM/DL (12.0-16.0); Immature Granulocytes % 0.5 %; Immature Granulocytes Absolute 0.04 #; Lymphocytes # 0.7 10*3/uL (1.4-4.0); Lymphocytes % 7.8 % (21.3-54.2); Mean Corpuscular Volume 91.3 FL (87-102); Mean Platelet Volume 10.6 FL (9.6-12.0); Monocytes % 10.5 % (1.7-12.7); Neutrophils % 79.3 % (38.7-73.9); Platelet Count 239 T/CUMM (130-400); Red Blood Count 3.46 MC/CUMM (3.8-5.5); Red Cell Distribution Width 14.3 % (9.3-17.3); White Blood Count 8.6 T/CUMM (4-12)
[2020-10-04 06:54] LABS: Calcium 8.3 MG/DL (8.5-10.1); Potassium 3.8 MMOL/L (3.5-5.1)
[2020-10-04] MEDS: MEMANTINE 5 MG TABLET PO SCH (09:44)
[2020-10-04] MEDS: FUROSEMIDE 20 MG TABLET PO SCH (09:44)
[2020-10-04] MEDS: PANTOPRAZOLE 40 MG TABLET PO SCH (09:44)
[2020-10-04] MEDS: FERROUS SULFATE 325 MG TABLET PO SCH (09:44)
[2020-10-04] MEDS: CETIRIZINE 10 MG TABLET PO SCH (09:45)
[2020-10-04] MEDS: TAMOXIFEN 10 MG TABLET PO SCH (09:45)
[2020-10-04] MEDS: MIRABEGRON 25 MG PO SCH (10:17)
[2020-10-04] MEDS: LEVOFLOXACIN INJ 250 MG in PREMIX 1 EACH IV SCH (14:57)
[2020-10-04] MEDS: OXYBUTYNIN XL 10 MG TABLET PO SCH (21:01)
[2020-10-04] MEDS: SERTRALINE 50 MG TABLET PO SCH (21:01)
[2020-10-04] MEDS: ATORVASTATIN 20 MG TABLET PO SCH (21:01)
[2020-10-04] MEDS: ENOXAPARIN 40 MG/0.4 ML SYRINGE SUBCUT SCH (21:01)
[2020-10-05] MEDS: CETIRIZINE 10 MG TABLET PO SCH (09:05)
[2020-10-05] MEDS: PANTOPRAZOLE 40 MG TABLET PO SCH (09:05)
[2020-10-05] MEDS: TAMOXIFEN 10 MG TABLET PO SCH (09:05)
[2020-10-05] MEDS: FERROUS SULFATE 325 MG TABLET PO SCH (09:05)
[2020-10-05] MEDS: MEMANTINE 5 MG TABLET PO SCH (09:05)
[2020-10-05] MEDS: FUROSEMIDE 20 MG TABLET PO SCH (09:05)
[2020-10-05] MEDS: MIRABEGRON 25 MG PO SCH (09:06)
[2020-10-05 11:49] VITALS: BP 127/58
== END 2020-10-05 13:51 | disposition home or self-care (01) ==
LOC: EDUNIT# → EDBD → N.ED 12:38 → N.EDINP 12:38 → SUATTDRO 15:12 → N.EDINP 17:11 → N.3E 17:18
PROVIDERS: ADMIT Internal Medicine; ATTEND Internal Medicine